=== PATIENT | female | born 1950 | race Caucasian/White ===

== ENCOUNTER 2016-05-28 07:08 | Day surgery (SDC) | payer MEDICARE, OTHER ==
[2016-05-28] MEDS ORDERED: LACTATED RINGERS 1,000 ML ONE (07:14)
[2016-05-28] MEDS ORDERED: IV START KIT ONE (07:15)
[2016-05-28] MEDS ORDERED: LIDOCAINE 2% (PRES FREE) 5 ML VIAL ONE (07:57)
[2016-05-28] MEDS ORDERED: PROPOFOL 40 ML IV ONE (07:57)
[2016-05-28] MEDS ORDERED: PROPOFOL 20 ML IV ONE ×2 (09:07)
--- NOTE | 2016-06-01 09:39 | SURGPATH ---
[facility] [address] [place] [id number] Patient Name: GRACE BRYAN MR#: [id number] : 1950 Gender: F Specimen #: [id number] Collected: 05/28/2016 Received: 05/29/2016 Reported: 06/01/2016 Submitting Phys: DINORA NATION Copy To Phys: [facility] Clinical History / Pre-Operative Diagnosis: COLON SCREENING Specimen Source / Surgical Procedure Performed: #1-ASCENDING COLON POLYP X2; #2-SIGMOID POLYP AT 20 CM Interpretation: 1. ASCENDING COLON POLYP X2, BIOPSIES: - TUBULAR ADENOMAS 2. SIGMOID COLON POLYP AT 20 CM, POLYPECTOMY: - HYPERPLASTIC POLYP Electronically Signed Out Kingsley Ayala M.D. Gross Description: #1 The specimen is received in a formalin filled container labeled with the patient's name and "ascending colon polyp x2". Two woodard biopsies are 0.3 and 0.4 cm. Totally embedded in cassette #1. #2 The specimen is received in a formalin filled container labeled with the patient's name and "sigmoid colon polyp at 20 cm". Two woodard biopsies are each 0.3 cm. Totally embedded in cassette #2. Asia Kaplan Microscopic Description: 1. The sections show colonic mucosa exhibiting adenomatous change with a tubular architectural pattern. The changes are characterized by nuclear stratification and hyperchromasia with increased mitotic activity. High-grade dysplasia is not identified. 2. The sections show colonic mucosa exhibiting hyperplastic changes without adenomatous features. 1: 20294 2: 39082 D12.2
== END 2016-05-28 09:50 | disposition home or self-care (01) ==
LOC: SDC 07:08
PROVIDERS: ATTEND Family Medicine
PROC: 0DBK8ZX Excision of Ascending Colon, Via Natural or Artificial Opening Endoscopic, Diagnostic (ICD-10-PCS; principal; 2016-05-28)
PROC: 0DBN8ZX Excision of Sigmoid Colon, Via Natural or Artificial Opening Endoscopic, Diagnostic (ICD-10-PCS; 2016-05-28)
DX: Z12.11 Encounter for screening for malignant neoplasm of colon (principal); D12.2 Benign neoplasm of ascending colon; K63.5 Polyp of colon; K57.30 Diverticulosis of large intestine without perforation or abscess without bleeding
CPT/HCPCS: 45385; J7120